=== PATIENT | female | born 1985 ===

== ENCOUNTER 2017-07-18 16:52 | Inpatient (IN) | payer OTHER ==
[~2017-07-18] VITALS: Ht 180.3 cm; Wt 103.4 kg
[2017-07-18] MEDS ORDERED: ALDOMET250 MG PO (17:48)
[2017-07-18] MEDS ORDERED: PRENATAL TABLE1 EAC1 PO (17:48)
[2017-07-24] MEDS ORDERED: ALDOMET500 MG PO (12:23)
== END 2017-07-24 14:14 | DRG 782 ==
LOC: OB/GYN 16:52 → LDR 16:52 → OB/GYN 07-20 13:32
PROC: BY4FZZZ Ultrasonography of Third Trimester, Single Fetus (ICD-10-PCS; principal; 2017-07-18)
PROC: 4A1HXCZ Monitoring of Products of Conception, Cardiac Rate, External Approach (ICD-10-PCS; 2017-07-18)
DX: O13.3 Gestational [pregnancy-induced] hypertension without significant proteinuria, third trimester (principal); Z3A.32 32 weeks gestation of pregnancy

== ENCOUNTER 2017-08-08 20:15 | Inpatient (IN) | payer OTHER ==
[~2017-08-08] VITALS: Ht 180.3 cm; Wt 105.7 kg
[~2017-08-08 20:15] MED LIST: ALDOMET250 MG PO; ALDOMET500 MG PO; PRENATAL TABLE1 EAC1 PO
[2017-08-16] MEDS ORDERED: PERCOCET 5-3251 EACH PO (13:36)
== END 2017-08-16 14:18 | DRG 766 ==
LOC: OB/GYN 20:15 → LDR 20:15 → OB/GYN 08-10 10:48
PROVIDERS: Specialist
PROC: 0UL70ZZ Occlusion of Bilateral Fallopian Tubes, Open Approach (ICD-10-PCS; 2017-08-10)
PROC: 4A033R1 Measurement of Arterial Saturation, Peripheral, Percutaneous Approach (ICD-10-PCS; 2017-08-10)
PROC: 4A1HXCZ Monitoring of Products of Conception, Cardiac Rate, External Approach (ICD-10-PCS; 2017-08-10)
PROC: 10D00Z1 Extraction of Products of Conception, Low, Open Approach (ICD-10-PCS; principal; 2017-08-10 17:00)
DX: O14.14 Severe pre-eclampsia complicating childbirth (principal); Z3A.34 34 weeks gestation of pregnancy; Z37.0 Single live birth; Z30.2 Encounter for sterilization